=== PATIENT | female | born 1995 | race Caucasian/White ===

== ENCOUNTER 2019-10-07 21:44 | Emergency (ER) | payer SELFPAY ==
--- NOTE | 2019-10-07 22:37 | ER Document Report ---
ED Substance Abuse / Acc. OD - General Mode of Arrival: Ambulatory Information source: Patient - HPI Patient complains to provider of: Drug abuse, Drug withdrawal Onset: This morning Pain Level: Denies Associated Symptoms: Rapid pulse Similar symptoms previously: Yes Recently seen / treated by doctor: No <JOSELITO TRIVEDI - Last Filed: 10/08/19 00:30> <RANELLY Connor - Last Filed: 10/08/19 05:42> <ARDEN VELAZCO - Last Filed: 10/08/19 15:46> <JOSELITO ANSARI - Last Filed: 10/08/19 16:28> - General Chief Complaint: Medical Clearance Stated Complaint: MEDICAL CLEARANCE Time Seen by Provider: 10/07/19 22:26 Primary Care Provider: [facility] [Outside] - Follow up as needed [facility] [Outside] - Follow up as needed Notes: Patient presents requesting detox from heroin. Patient states she attempted to go to the [facility] facility but because they took a test and she was found to be they advised her to come here for detox. Patient states last use of heroin was at 9 AM today. Patient denies any other illicit substance abuse. (JOSELITO TRIVEDI) - Related Data Allergies/Adverse Reactions: No Known Allergies Allergy (Unverified 10/07/19 22:33) Past Medical History - General Information source: Patient - Social History Smoking Status: Current Every Day Smoker Frequency of alcohol use: None Drug Abuse: Heroin Lives with: Family Family History: Reviewed & Not Pertinent Patient has homicidal ideation: No - Medical History Medical History: Negative Surgical Hx: Negative <JOSELITO TRIVEDI - Last Filed: 10/08/19 00:30> Review of Systems - Review of Systems Constitutional: No symptoms reported. denies: Fever EENT: No symptoms reported Cardiovascular: Palpitations Respiratory: No symptoms reported Gastrointestinal: No symptoms reported Genitourinary: No symptoms reported Female Genitourinary: No symptoms reported Musculoskeletal: No symptoms reported Skin: No symptoms reported Hematologic/Lymphatic: No symptoms reported Neurological/Psychological: No symptoms reported <JOSELITO TRIVEDI - Last Filed: 10/08/19 00:30> Physical Exam <JOSELITO TRIVEDI - Last Filed: 10/08/19 00:30> - Vital signs Vitals: Temp Pulse Resp BP Pulse Ox 98.8 F 118 H 14 139/68 H 100 10/07/19 21:54 10/07/19 21:54 10/07/19 21:54 10/07/19 21:54 10/07/19 21:54 - Notes Notes: PHYSICAL EXAMINATION: GENERAL: Well-appearing and in no acute distress. HEAD: Atraumatic, normocephalic. EYES: extraocular movements intact, sclera anicteric, conjunctiva are normal. ENT: nares patent, oropharynx clear without exudates. Moist mucous membranes. NECK: Normal range of motion, supple without lymphadenopathy LUNGS: CTAB and equal. No wheezes rales or rhonchi. HEART: Tachycardia and rhythm without murmurs ABDOMEN: Soft, no tenderness. EXTREMITIES: Multiple track aggarwal to bilateral upper extremities, area of erythema to dorsal middle third of right forearm BACK: No midline tenderness, no step-off or deformity. NEUROLOGICAL: Cranial nerves grossly intact. Normal speech. Normal gait. PSYCH: Tearful, normal affect SKIN: Warm, Dry, erythema to dorsum of right forearm surrounding track aggarwal. Patient with multiple track aggarwal to bilateral upper extremities (JOSELITO TRIVEDI) Course - Laboratory Result Diagrams: 10/07/19 23:06 10/07/19 23:06 <JOSELITO TRIVEDI - Last Filed: 10/08/19 00:30> - Laboratory Result Diagrams: 10/07/19 23:06 10/07/19 23:06 <NELLY KNAPP - Last Filed: 10/08/19 05:42> - Laboratory Result Diagrams: 10/07/19 23:06 10/07/19 23:06 <ARDEN VELAZCO - Last Filed: 10/08/19 15:46> - Laboratory Result Diagrams: 10/07/19 23:06 10/07/19 23:06 <JOSELITO ANSARI - Last Filed: 10/08/19 16:28> - Re-evaluation Re-evalutation: 10/07/19 23:39 Patient medically clear for discharge or transfer pending behavioral health team consultation. 10/08/19 00:30 Patient's UDS negative for opiates although it is positive for cocaine and marijuana. Report and handoff given to Nelly Knapp NP (JOSELITO TRIVEDI) 10/08/19 05:42 Approached by nursing, patient slightly diaphoretic and shaking feels like she is withdrawing from heroin although she was negative for opiates on her drug screen yesterday positive for cocaine and marijuana. Discussed with Dr. mills attending, will give 1 mg Ativan (NELLY KNAPP) 10/08/19 16:24 This migraine physician prosthetics assistant I took over patient care from nighttime APC. He reports that patient was brought in for heroin detox and is waiting for evaluation possible placement. States that patient's drug screen came back with no opiates in it but did come back positive for cocaine. Patient has been resting comfortably all day. Patient was evaluated by psych late in the afternoon and patient is a voluntary admit looking for guidance on detox and has been given all of the information by social work manager. When she leaves out of the ER she will contact the local rehab and they will help her get established. Patient was found to be prior to being sent here by the detox facility and she had had no complaints throughout the entire day. Just prior to being discharged patient requested having an ultrasound to find out how far along she was. I informed patient that just because you are does not mean you need an ultrasound and especially 1 out of the emergency room. She has had no complaints of spotting no complaints of cramping or abdominal discomfort or pelvic pain. I have informed her that this is something she can follow-up with outpatient and that she can do so at the health department. Patient is free to go on her own recognizance. She was in touch with her mother and family in [place] and they are willing to come get her. (JOSELITO ANSARI) - Vital Signs Vital signs: Temp Pulse Resp BP Pulse Ox 98.1 F 118 H 15 105/57 L 99 10/08/19 11:26 10/07/19 21:54 10/08/19 10:01 10/08/19 10:00 10/08/19 11:26 - Laboratory Laboratory results interpreted by me: 10/07/19 10/07/19 10/07/19 22:36 23:06 23:06 WBC 13.1 H MCV 75 L MCH 25.2 L RDW 15.5 H Lymph % (Auto) 12.5 L Absolute Neuts (auto) 10.7 H Seg Neutrophils % 82.2 H Creatinine 0.50 L AST 43 H ALT 46 H Total Protein 8.4 H Serum HCG, Qual Urine Urobilinogen 2.0 H Salicylates < 1.0 L Acetaminophen < 10 L 10/07/19 23:06 WBC MCV MCH RDW Lymph % (Auto) Absolute Neuts (auto) Seg Neutrophils % Creatinine AST ALT Total Protein Serum HCG, Qual POSITIVE H Urine Urobilinogen Salicylates Acetaminophen Discharge <JOSELITO TRIVEDI - Last Filed: 10/08/19 00:30> <RANELLY Ryan - Last Filed: 10/08/19 05:42> <MORAARDEN - Last Filed: 10/08/19 15:46> <JOSELITO ANSARI - Last Filed: 10/08/19 16:28> - Discharge Clinical Impression: Polysubstance abuse, Opioid abuse, Cocaine abuse, Cannabis abuse, Desire for detoxification Qualifiers: Weeks of gestation: unspecified Qualified Code(s): Z34.90 - Encounter for supervision of normal , unspecified, unspecified trimester Condition: Stable Disposition: HOME, SELF-CARE Instructions: ([facility]) Additional Instructions: You have been evaluated by both medical and behavioral health teams for polysubstance use (opioid, cocaine, cannabis) and desire for detoxification. You have been deemed appropriate for discharge. While in the emergency department you received the following services/or had access to: Medical screening and assessment, nursing services, dietary services, pharmacological services, one-on-one counseling and/or psychotherapy, environmental services, and continuous observation by a patient corporate safety coordinator. COCAINE ABUSE: Cocaine causes many dangerous medical problems. Problems can occur even with "usual" amounts. Cocaine affects judgement, creating a sense of inv ulnerability. Cocaine users often make bad decisions that seem "great" at the time. Most cocaine users eventually will be hurt by bad job performance, damaged personal relations, crime, and unsafe sexual practices. Toxic effects of cocaine can include seizures, hallucinations, delusions, high blood pressure, heart damage, or sudden . There's always the risk of a "bad batch." But heart attacks, brain hemorrhages, or cardiac arrest can occur unpredictably even with "normal" use. Injection of cocaine is risky for abscesses, endocarditis (heart infection), pneumonia, and AIDS. Withdrawal from cocaine often causes anxiety and drug cravings. Some users become paranoid and psychotic. Many treatment programs are available, but you must make the decision to quit. Medication can be prescribed to control the symptoms of cocaine toxicity (beta blockers or benzodiazepines). Withdrawal symptoms may require tranquilizers. NARCOTIC / OPIOID ABUSE: Narcotics and opioids are pain-relieving drugs that are often abused. They are addicting. Narcotics cause euphoria, but it often takes increasing amounts to "feel good" and avoid withdrawal symptoms. Overdose of narcotics causes small pupils, coma, and decreased breathing. It's a common cause of . Purity of street narcotics is unpredictable. Injection of narcotics is risky for abscesses, endocarditis (heart infection), pneumonia, and AIDS. Withdrawal from narcotics causes goose bumps, watery mouth, sweating, nasal congestion, muscle aches, abdominal cramps, vomiting, and diarrhea. There's often restlessness and confusion. Treatment programs are available, but you must make the decision to quit. Medication (such as clonidine) can be prescribed to control the symptoms of withdrawal. Cannabis is also mind altering. The human brain develops well into our 20s and use of cannabis affects the development. Also it causes impairment in judgment, insight and impulse control. FOLLOW-UP CARE: [facility] is unable to assist you with your detoxification due to not having access to Methadone and/or Suboxone. A Voluntary referral was sent to [facility]. You are recommended to utilize mobile crisis as they can assist with voluntary detoxification and stay involved, as long as you do your part, until you get bed availability. You have been provided the substance abuse resource sheet which includes both mobile crisis numbers and the list of detoxification facilities. You have also been provided the economic resource sheet for local shelters and food [facility]son/soup kitchen. A referral was made to [facility] for the Peer Navigator Program (like a case management service that can assist with local resources.information/linkage). If you experience worsening or a significant change in your symptoms notify your physician immediately, utilize mobile crisis or return to the Emergency Department at any time for re-evaluation. Referrals: [facility] [Outside] - Follow up as needed [facility] [Outside] - Follow up as needed
[2019-10-07] MEDS ORDERED: DIPHENHYDRAMINE HCL 50 MG/ML VIAL IV ONE (22:42)
[2019-10-07] MEDS ORDERED: METOCLOPRAMIDE HCL INJ/PF 10 MG/2 ML SDV IV ONE (22:42)
[2019-10-07] MEDS ORDERED: NORMAL SALINE 1000 ML 1,000 ML IV ONE (22:42)
[2019-10-07 23:03] LABS: APPEARANCE,URINE SLIGHTLY-CLOUDY; BILIRUBIN,URINE NEGATIVE (NEGATIVE); COLOR,URINE YELLOW; GLUCOSE, URINE NEGATIVE (NEGATIVE); KETONES,URINE NEGATIVE (NEGATIVE); LEUKOCYTE ESTERASE,URINE NEGATIVE (NEGATIVE); NITRITE,URINE NEGATIVE (NEGATIVE); PROTEIN,URINE NEGATIVE (NEGATIVE); URINE SPECIFIC GRAVITY 1.024
[2019-10-07] MEDS: CEPHALEXIN 500 MG CAPSULE PO SCH (23:04)
[2019-10-07 23:14] LABS: ABSOLUTE BASOPHILS # (AUTO) 0.1 10^3/uL (0.0-0.2); ABSOLUTE LYMPHOCYTES (AUTO) 1.6 10^3/uL (0.5-4.7); ABSOLUTE MONOCYTES (AUTO) 0.6 10^3/uL (0.1-1.4); ABSOLUTE NEUT (AUTO) 10.7 10^3/uL (1.7-8.2); BASOPHILS % (AUTO) 0.4 % (0-2); EOSINOPHILS % (AUTO) 0.2 % (0-6); HEMATOCRIT 37.4 % (36.0-47.0); HEMOGLOBIN 12.5 g/dL (12.0-15.5); LYMPHOCYTES % (AUTO) 12.5 % (13-45); MEAN CORPUSCULAR HEMOGLOBIN 25.2 pg (27.0-33.4); MEAN CORPUSCULAR HGB CONC 33.4 g/dL (32.0-36.0); MEAN CORPUSCULAR VOLUME 75 fl (80-97); MONOCYTES % (AUTO) 4.7 % (3-13); PLATELET COUNT 389 10^3/uL (150-450); RED BLOOD COUNT 4.96 10^6/uL (3.72-5.28); RED CELL DISTRIBUTION WIDTH 15.5 % (11.5-14.0); SEGMENTED NEUTROPHILS % (AUTO) 82.2 % (42-78); TOTAL CELLS COUNTED % (AUTO) 100 %; WHITE BLOOD COUNT 13.1 10^3/uL (4.0-10.5)
[2019-10-07 23:15] LABS: URINE AMPHETAMINES SCREEN NEGATIVE; URINE BARBITURATES SCREEN NEGATIVE; URINE BENZODIAZEPINES SCREEN NEGATIVE; URINE METHADONE SCREEN NEGATIVE; URINE PHENCYCLIDINE SCREEN NEGATIVE
[2019-10-07 23:16] LABS: URINE COCAINE SCREEN UNCONFIRMED POSITIVE; URINE MARIJUANA (THC) SCREEN UNCONFIRMED POSITIVE
[2019-10-07 23:38] LABS: ACETAMINOPHEN < 10 ug/mL (10-30); ALBUMIN 4.2 g/dL (3.5-5.0); ALCOHOL < 10 mg/dL (NONE DETECTED); ALKALINE PHOSPHATASE 101 U/L (38-126); ANION GAP 10 (5-19); ASPARTATE AMINO TRANSFERASE 43 U/L (14-36); BILIRUBIN,TOTAL 0.4 mg/dL (0.2-1.3); BLOOD UREA NITROGEN 8 mg/dL (7-20); CALCIUM 9.4 mg/dL (8.4-10.2); CARBON DIOXIDE 24 mmol/L (22-30); CHLORIDE 103 mmol/L (98-107); GLUCOSE 102 mg/dL (75-110); POTASSIUM 4.1 mmol/L (3.6-5.0); SALICYLATE < 1.0 mg/dL (2.0-20.0); TOTAL PROTEIN 8.4 g/dL (6.3-8.2)
[2019-10-08] MEDS ORDERED: LORAZEPAM 1 MG TABLET PO ONE (05:42)
--- NOTE | 2019-10-08 08:33 | EKG REPORT ---
SEVERITY:- BORDERLINE ECG - SINUS RHYTHM INFERIOR Q WAVES, PROBABLY NORMAL VARIATION : Confirmed by: Armin Riggins 08-Oct-2019 08:33:10
[2019-10-08 11:11] VITALS: BP 105/57
[2019-10-08] MEDS: CEPHALEXIN 500 MG CAPSULE PO SCH ×2 (11:27→14:48)
--- NOTE | 2019-10-09 10:06 | PSYCHOLOGICAL NOTE ---
Psych Note - Psych Note Date seen by psych provider: 10/08/19 Time seen by psych provider: 11:31 - Evaluation with patient from [id number]. Mother collateral from [phone]. Coordaintion with [facility] from [phone]. Coordination with [facility] for [facility] authorization at 1401. Voluntary [facility] referral faxed at [phone]. Mother and friend aware of plan of care at 1600. Psych Note: Patient is a 24 year old female who presented to the Emergency Department last evening via privately owned vehicle after trying to get into [facility] [employer] for Opioid detoxification but in the process they discovered (patient was not aware) she was . Patient reported she was interested in detoxification for heroin, [facility] could not help because they do not offer Methadone and Suboxone which they said she would require such a taper due to (patient reported heroin use yesterday morning, Urine Drug Screen positive for Cocaine and Cannabis, she did not deny use of either but said it was not regular. Patient reported this is her first . She denied using Methadone and admitted being prescribed it in the past. She further reported on her mother is coming from [place] to get her and then she will be going to a rehabilitation treatment program in [place]. Patient stated she came to [place] for her boyfriend who is no longer in the picture, she has nowhere to go, and she has no support s locally. Patient then elaborated that her boyfriend yesterday. As she said this she turned away and closed her eyes. She continued to engage in the evaluation after this. Patient denied previous detoxification/rehabilitation and previous mental health hospitalizations. At the end of the evaluation she asked "am I going to be discharged, I'm going to get really sick." She was made aware the emergency department is not a detoxification facility and appropriate linkage could take place with mobile crisis assisting. When made aware of discharge later in the day she called someone named Soham then mother, had both in speaker phone. This clinician informed all of them of the plan which meant patient calling mobile crisis immediately at discharge and they could meet her in the lobby/outside/anywhere to begin assisting with voluntary detoxification placement. Patient again mentioned "I'm sick I'm not doing okay." This clinician challenged her explaining her vitals look good and no medical concerns. She s tated "they don't know mom." This clinician did acknowledge she would start to get sick as the withdrawal continued. She denied suicidal and homicidal ideation which were never presenting concerns. Patient was alert and oriented to self, person, place, time and situation. Mood was euthymic with congruent affect. She denied current suicidal and homicidal ideation. Patient did not appear to be responding to internal stimuli as evidenced by fair eye contact and answering questions appropriately when addressed. Thought processes were linear and organized. Conversational speech was within normal limits for rate, tone and prosody. Intellectual abilities are estimated to be average. Insight, judgment and impulse control were fair as evidenced by wanting help. Obtained collateral from patient's mother Delphine ([phone]). Patient provided contact information and gave verbal consent to talk with her and include her in plan of care. Mother was aware of patient being in the emergency department and finding out she was last evening when she tried to get into [facility] for voluntary detoxification. Mother stated she called the hospital to ask about if they provide detoxification or can link and they said yes so she told patient to come. Mother stated "she really needs to get to detoxification then yes I would pick her up, bring her to [place] and help her get into a rehabilitation program." She commented on how the flow of substance abuse treatment (getting detoxification and going right into another program) is not smooth in [place] often times bed availability being an issue and individuals having to wait. She was made aware it was similar in [place]. She stated "I talked to her last night, it was the first time she was making sense, she was worried abo ut drugs hurting the baby and mentioned she needed to grow up now." From [phone] spoke to Paloma at [facility] about patient. She stated they are unable to meet patient's needs due to her being , the need for Suboxone or Methadone taper for Opioid withdrawal especially with finding out , and they do not have those medications at their facility. Paloma stated [facility] has a unit. At 1346 tried calling [facility]. Completed Regional Referral form. At 1401 called [facility], spoke to Junaid, obtained authorization ([id number]). Obtained referral packet and at 1409 faxed to [facility] for voluntary detoxification. At 1552 tried calling [facility] for Peer Navigator referral. No answer. Left voice mail with call back information. Clinical Presentation: Polysubstance Use Opioid Use (Heroin per patient) Cocaine Use Cannabis Use Desire for detoxification Just found out she is Impression/Plan: Patient is cleared from acute psychiatric services. She denied suicidal and homicidal ideation. These were never presenting concerns. She expressed desire for opioid detoxification and concerns since she just found out she was . Coordinated with [facility] who said they cannot meet patient's needs. Made a voluntary referral to [facility]. Provided patient with the outpatient substance abuse resource sheet which highlighted and documented calling one of the mobile crisis teams at discharge to assist with voluntary detoxification placement, it noted [facility] said they could not meet patient's needs and why and it noted referral sent to [facility] with authorization number. Patient also provided with her lab work/EKG so [facility] would have it for other detoxification referrals. Provided patient with the local economic resource sheet as well that lists homeless shelters and food [facility]ardson/soup kitchen. Mother and friend Soham aware of plan of care. Patient instructed to call one of the mobile crisis numbers once discharged so they could meet her at the hospital. Attending ED Nurse stated she had patient call mobile crisis from patient's own cell phone as she was being discharged. Consulted with Dr. Hill regarding the management and care of patient. ED Physician in agreement with recommendations.
== END 2019-10-08 16:52 | disposition home or self-care (01) ==
LOC: ER 21:44
DX: O99.320 Drug use complicating pregnancy, unspecified trimester (principal); R61 Generalized hyperhidrosis; F19.10 Other psychoactive substance abuse, uncomplicated; F14.10 Cocaine abuse, uncomplicated; F12.10 Cannabis abuse, uncomplicated; F17.200 Nicotine dependence, unspecified, uncomplicated; Z3A.00 Weeks of gestation of pregnancy not specified
CPT/HCPCS: 93005; 99284; 96361; 96374; 96375; 36415; 80307 ×4; 84703; 85025; 80053; 81001; 93010; J1200; J2765; J7030

== ENCOUNTER 2019-10-09 10:13 | Emergency (ER) | payer SELFPAY ==
[2019-10-09 10:42] VITALS: BP 109/47
--- NOTE | 2019-10-09 11:48 | ER Document Report ---
ED Psych Disorder / Suicide <MIROSLAVA VELAZCO - Last Filed: 10/09/19 14:44> <ABI PARIS - Last Filed: 10/13/19 00:23> - General Chief Complaint: Suicidal Ideation Stated Complaint: SUICIDAL IDEATION Time Seen by Provider: 10/09/19 10:31 Primary Care Provider: [facility] [Outside] - Follow up as needed Notes: 22-year-old female presenting today with suicidal ideation starting this morning. Is a known IV drug user (heroine). Was discharged from the ER yesterday. Had a referral to [facility]. States she has had suicidal ideations starting this morning. She denies any active plan. States she is hearing voices that are telling her to kill herself. She is . Is uncertain as to when her LMP is. No established OB care yet. Denies any headaches, fevers, chills, abdominal pain or additional symptoms. (ABI PARIS) - Related Data Allergies/Adverse Reactions: No Known Allergies Allergy (Verified 10/09/19 11:51) Past Medical History - Social History Smoking Status: Current Every Day Smoker Drug Abuse: Heroin Family History: Reviewed & Not Pertinent <ABI PARIS - Last Filed: 10/13/19 00:23> Review of Systems - Review of Systems Constitutional: No symptoms reported EENT: No symptoms reported Cardiovascular: No symptoms reported Respiratory: No symptoms reported Gastrointestinal: No symptoms reported Genitourinary: No symptoms reported Female Genitourinary: Musculoskeletal: No symptoms reported Skin: No symptoms reported Hematologic/Lymphatic: No symptoms reported Neurological/Psychological: No symptoms reported <ABI PARIS - Last Filed: 10/13/19 00:23> Physical Exam - Vital signs Interpretation: Normal <ABI PARIS - Last Filed: 10/13/19 00:23> - Vital signs Vitals: Temp 97.9 F 10/09/19 10:33 - Notes Notes: Adult General: GENERAL: Alert, interacts well. No acute distress HEAD: Normocephalic, atraumatic EYES: Pupils equal, round and reactive to light. Extraocular movements intact. ENT: Airway patent. Nares patent. NECK: Full range of motion. Supple. Trachea midline. No lymphadenopathy. LUNGS: Clear to auscultation bilaterally, no wheezes, rales, or rhonchi. No respiratory distress. Nontender chest wall. HEART: Regular rate and rhythm. No murmurs, rubs or gallops. ABDOMEN: Soft, nontender, . GENITOURINARY: Deferred EXTREMITIES: Moves all 4 extremities spontaneously. BACK: Moves all extremities with full range of motion. NEUROLOGICAL: Alert and oriented x3. Normal speech. Strength 5/ 5 in all extremities. PSYCH: Normal affect, normal mood. SKIN: Warm, dry, normal turgor. No rashes or lesions noted. (ABI PARIS) Course - Laboratory Result Diagrams: 10/09/19 12:40 10/09/19 12:40 <MIROSLAVA VELAZCO - Last Filed: 10/09/19 14:44> - Laboratory Result Diagrams: 10/09/19 12:40 10/09/19 12:40 <ABI PARIS - Last Filed: 10/13/19 00:23> - Re-evaluation Re-evalutation: 10/09/19 15:58 Her EKG shows heart rate of 78, GA interval of 120, QT of 376, normal axis. No ST segment elevations or depressions. Her urinalysis does show positive leukocyte esterase. Her UDS shows she is positive for cocaine and marijuana. Additional labs are unremarkable. She denies any pain at this time. I will go ahead and treat her for asymptomatic UTI at this time as she is . Patient is medically cleared. 10/09/19 16:06 I was notified by the nurse that the patient has left the emergency department with her transport to inpatient treatment prior to her getting a script for a UTI and prior to this provider reevaluating the patient. I talked with Miroslava with mental health. Was notified patient was picked up by mobile crisis unit to be taken to [facility] for inpatient treatment. They have been attempted to be reached three times unsuccessfully by Miroslava. I have also called and left a message but have not received a call back. They were sent the labs. Multiple attempts were made to reach the patient while at inpatient treatment. (ABI PARIS) - Vital Signs Vital signs: Temp Pulse Resp BP Pulse Ox 97.9 F 80 18 109/47 L 97 10/09/19 10:39 10/09/19 10:42 10/09/19 10:42 10/09/19 10:42 10/09/19 10:42 - Laboratory Laboratory results interpreted by me: 10/09/19 10/09/19 10/09/19 12:40 12:40 13:55 WBC 12.1 H MCV 74 L MCH 25.1 L RDW 15.2 H Absolute Neuts (auto) 9.3 H Chloride 109 H Carbon Dioxide 19 L Creatinine 0.49 L AST 42 H ALT 50 H Total Protein 8.4 H Beta HCG, Quant 00822.00 H Urine Protein 30 H Urine Ketones TRACE H Urine Urobilinogen 4.0 H Ur Leukocyte Esterase SMALL H Salicylates < 1.0 L Acetaminophen < 10 L Discharge <MIROSLAVA VELAZCO - Last Filed: 10/09/19 14:44> <ABI PARIS - Last Filed: 10/13/19 00:23> - Discharge Clinical Impression: Polysubstance abuse, Opioid abuse, Cocaine abuse, Cannabis abuse, Desire for detoxification, , Suicidal ideation Condition: Stable Disposition: HOME, SELF-CARE Additional Instructions: You have been evaluated by both medical and behavioral health teams for suicidal ideation, polysubstance use (you reported Intravenous heroin use for past 3 years, Urine drug screen positive for Cocaine and Cannabis), desire for detoxification and finding out yesterday you are . You have been deemed appropriate for discharge. While in the emergency department you received the following services/or had access to: Medical screening and assessment, nursing services, dietary services, pharmacological services, one-on-one counseling and/or psychotherapy, environmental services, and continuous observation by a patient safety net maker. You are recommended for voluntary detoxification at [facility] with transportation assistance from [facility]. DEPRESSION: Your evaluation reveals that you have mental depression. While symptoms may be vague, they often include disturbance of sleep, fatigue, loss of appetite, and general loss of interest in life. While depression may be a side effect of drugs, or a reaction to a major change in your life, many cases have no known cause. If depression is acute, and related to a major loss in your life, you can expect it to clear completely with time. If you have been depressed a long time, are prone to repeated bouts of depression or low mood, or have been thinking of suicide, get help. Depression can be treated with anti-depressant medication and counselling. Long-term depression will often take a few weeks to clear, even with appropriate medication. Follow-up care is important. SUICIDAL IDEATION: Suicidal ideation is a common medical term for thoughts about suicide, which may be as detailed as a formulated plan, without the suicidal act itself. Although most people who undergo suicidal ideation do not commit suicide, some go on to make suicide attempts. The range of suicidal ideation varies greatly from fleeting to detailed planning, role playing, and unsuccessful attempts. While thoughts about suicide are common, most people do not carry out serious actions to commit suicide. Based upon your evaluation and discussion with you, we do not believe you are currently at risk to act upon your thoughts of suicide. You have agreed to return to the Emergency Department, at any time, if you feel inclined to act upon your suicidal thoughts. COCAINE ABUSE: Cocaine causes many dangerous medical problems. Problems can occur even with "usual" amounts. Cocaine affects judgement, creating a sense of invulnerability. Cocaine users often make bad decisions that seem "great" at the time. Most cocaine users eventually will be hurt by bad job performance, d amaged personal relations, crime, and unsafe sexual practices. Toxic effects of cocaine can include seizures, hallucinations, delusions, high blood pressure, heart damage, or sudden . There's always the risk of a "bad batch." But heart attacks, brain hemorrhages, or cardiac arrest can oc cur unpredictably even with "normal" use. Injection of cocaine is risky for abscesses, endocarditis (heart infection), pneumonia, and AIDS. Withdrawal from cocaine often causes anxiety and drug cravings. Some users become paranoid and psychotic. Many treatment programs are available, but you must make the decision to quit. Medication can be prescribed to control the symptoms of cocaine toxicity (beta blockers or benzodiazepines). Withdrawal symptoms may require tranquilizers. NARCOTIC / OPIOD ABUSE: Narcotics and opiods are pain-relieving drugs that are often abused. They are addicting. Narcotics cause euphoria, but it often takes increasing amounts to "feel good" and avoid withdrawal symptoms. Overdose of narcotics causes small pupils, coma, and decreased breathing. It's a common cause of . Purity of street narcotics is unpredictable. Injection of narcotics is risky for abscesses, endocarditis (heart infection), pneumonia, and AIDS. Withdrawal from narcotics causes goose bumps, watery mouth, sweating, nasal congestion, muscle aches, abdominal cramps, vomiting, and diarrhea. There's often restlessness and confusion. Treatment programs are available, but you must make the decision to quit. Medication (such as clonidine) can be prescribed to control the symptoms of withdrawal. Cannabis Abuse: It is also mind altering and impairs insight/judgment/impulse control. Human brains develop well into our 20s and use of cannabis can affect that development. It can also cause and/or exacerbate mental health symptoms. FOLLOW-UP CARE: [facility] is accepting you for voluntary detoxification/treatment and [facility] is assisting with transportation. [facility] has been coordinating care with both professional supports. This is an appropriate level of care. 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 If you experience worsening or a significant change in your symptoms notify your physician immediately, utilize mobile crisis or return to the Emergency Department at any time for re- evaluation. Prescriptions: Cephalexin Monohydrate [Keflex 500 mg Capsule] 500 mg PO Q6H 5 Days #20 capsule Referrals: [facility] [Outside] - Follow up as needed
[2019-10-09] MEDS ORDERED: ONDANSETRON 4 MG TAB.RAPDIS PO ONE (12:35)
[2019-10-09 12:55] LABS: ABSOLUTE BASOPHILS # (AUTO) 0.1 10^3/uL (0.0-0.2); ABSOLUTE LYMPHOCYTES (AUTO) 2.2 10^3/uL (0.5-4.7); ABSOLUTE MONOCYTES (AUTO) 0.5 10^3/uL (0.1-1.4); ABSOLUTE NEUT (AUTO) 9.3 10^3/uL (1.7-8.2); BASOPHILS % (AUTO) 0.4 % (0-2); EOSINOPHILS % (AUTO) 0.1 % (0-6); HEMATOCRIT 37.1 % (36.0-47.0); HEMOGLOBIN 12.5 g/dL (12.0-15.5); LYMPHOCYTES % (AUTO) 17.9 % (13-45); MEAN CORPUSCULAR HEMOGLOBIN 25.1 pg (27.0-33.4); MEAN CORPUSCULAR HGB CONC 33.8 g/dL (32.0-36.0); MEAN CORPUSCULAR VOLUME 74 fl (80-97); MONOCYTES % (AUTO) 4.5 % (3-13); PLATELET COUNT 365 10^3/uL (150-450); RED BLOOD COUNT 4.99 10^6/uL (3.72-5.28); RED CELL DISTRIBUTION WIDTH 15.2 % (11.5-14.0); SEGMENTED NEUTROPHILS % (AUTO) 77.1 % (42-78); TOTAL CELLS COUNTED % (AUTO) 100 %; WHITE BLOOD COUNT 12.1 10^3/uL (4.0-10.5)
[2019-10-09 13:17] LABS: ALKALINE PHOSPHATASE 109 U/L (38-126); ANION GAP 12 (5-19); ASPARTATE AMINO TRANSFERASE 42 U/L (14-36); BILIRUBIN,TOTAL 0.6 mg/dL (0.2-1.3); BLOOD UREA NITROGEN 7 mg/dL (7-20); CALCIUM 9.3 mg/dL (8.4-10.2); CARBON DIOXIDE 19 mmol/L (22-30); CHLORIDE 109 mmol/L (98-107); GLUCOSE 105 mg/dL (75-110); POTASSIUM 3.9 mmol/L (3.6-5.0); TOTAL PROTEIN 8.4 g/dL (6.3-8.2)
[2019-10-09 13:34] LABS: ACETAMINOPHEN < 10 ug/mL (10-30); ALCOHOL < 10 mg/dL (NONE DETECTED); SALICYLATE < 1.0 mg/dL (2.0-20.0)
[2019-10-09 14:12] LABS: APPEARANCE,URINE SLIGHTLY-CLOUDY; BILIRUBIN,URINE NEGATIVE (NEGATIVE); COLOR,URINE AMBER; GLUCOSE, URINE NEGATIVE (NEGATIVE); KETONES,URINE TRACE mg/dL (NEGATIVE); LEUKOCYTE ESTERASE,URINE SMALL (NEGATIVE); NITRITE,URINE NEGATIVE (NEGATIVE); PROTEIN,URINE 30 mg/dL (NEGATIVE); URINE SPECIFIC GRAVITY 1.026
--- NOTE | 2019-10-09 14:14 | PSYCHOLOGICAL NOTE ---
Psych Note - Psych Note Date seen by psych provider: 10/09/19 Time seen by psych provider: 13:35 - Evaluation with patient from [phone]. Missed call from [facility] this morning so tried calling back at 1137 and 1340 regarding voluntary referral from yesterday/admissions called at 1432. C benjie from [facility] from [id number], [phone] and [phone]. Psych Note: Patient is a 24 year old female who presented to the Emergency Department late morning via EMS for suicidal ideation with thoughts of hanging herself. She denied taking action or any history of suicide attempts to medical staff. She informed medical staff she has been an IV heroin user the past 3 years and was in the Emergency Department yesterday (10/08/2019) for detoxification (note tried to get patient to [facility] but denied due to the facility not utilizing Methadone or Suboxone and that being protocol for someone who is detoxifying from opioids while , also faxed a voluntary referral to [facility], then patient was instructed to utilize [facility] for ongoing assistance with voluntary detoxification placement, patient also provided economic resource sheet). Patient confirmed she contacted [facility] yesterday as was instructed. She stated "they cannot get me detoxification because I am ." She identified her mother paid for her to stay in a hotel last night. When asked about in the moment if she had any thoughts of wanting to hurt/harm/kill self she commented "some, it's the same." Patient was alert and oriented to self, person, place, time and situation. Mood was euthymic with congruent affect. She continued to endorse suicidal ideation saying it was the same. Patient did not appear to be responding to internal stimuli as evidenced by fair eye contact and answering questions appropriately when addressed. Thought processes were linear and organized. Conversational speech was within normal limits for rate, tone and prosody. Intellectual abilities are estimated to be average. Insight, judgment and impulse control were fair as evidenced by reaching out to mobile crisis as recommended yesterday (10/08/2019). At 0808 this clinician saw missed calls from [facility]. Returned call at 1137, spoke to Bonnie who transferred call to referrals/triage, no answer, left message with return call back information. Tried calling again at 1340 and again no answer. At 1432 Kierra from [facility] called. She inquired about current withdrawal symptoms: was informed patient has been sleeping and observed her forehead being sweaty. She inquired about and how far along. Was made aware today has HCG level. It was verbally provided. Patient gave verbal consent to fax lab work so did. Patient being accepted to [facility]. From [phone] spoke to José Miguel with [facility]. He identified ticket worker Camille was involved with patient last evening. He identified the [facility] was fill, [facility] denied due to , was unsure about the [facility] locations, and that the ticket worker tried to get [facility] to [facility] but that was chaotic and did not happen. He said he would have Camille call to coordinate care and for additional collateral. From [phone] Camille with [facility] called ([phone]). She stated patient did not express suicidal ideation yesterday. She further stated [facility] denied due to , [facility] said they do not accept individuals, she did a [facility] ([facility]) referral, and she would call [facility] because she has not heard back. She was made aware this clinician had reached out to [facility] yesterday and made a [facility] referral as well. shed workers supervisor stated she tried to get patient to [facility] but they are closed, would try the outreach nursing home, and would contact [facility] in [place]. She stated she would call back. At 1436 Camille called back she stated she could provide transportation for patient by 1536. Clinical Presentation: Homelessness Desire for Opioid (Heroin) detoxification Suicidal ideation Impression/Plan: Patient is cleared from acute psychiatric services. [facility] has coordinated with [facility] Camille and [facility] admission worker Kierra for voluntary detoxification. [facility] to provide transportation. Consulted with Dr. Hill regarding the management and care of patient. ED Physician in agreement with recommendations.
[2019-10-09 14:26] LABS: URINE AMPHETAMINES SCREEN NEGATIVE; URINE BARBITURATES SCREEN NEGATIVE; URINE BENZODIAZEPINES SCREEN NEGATIVE; URINE METHADONE SCREEN NEGATIVE; URINE PHENCYCLIDINE SCREEN NEGATIVE
[2019-10-09 14:28] LABS: URINE COCAINE SCREEN UNCONFIRMED POSITIVE; URINE MARIJUANA (THC) SCREEN UNCONFIRMED POSITIVE
--- NOTE | 2019-10-09 18:36 | EKG REPORT ---
SEVERITY:- NORMAL ECG - SINUS RHYTHM : Confirmed by: Armin Riggins 09-Oct-2019 18:36:15
== END 2019-10-09 16:17 | disposition home or self-care (01) ==
LOC: ER 10:13
DX: O99.320 Drug use complicating pregnancy, unspecified trimester (principal); F19.10 Other psychoactive substance abuse, uncomplicated; F11.10 Opioid abuse, uncomplicated; F14.10 Cocaine abuse, uncomplicated; F12.10 Cannabis abuse, uncomplicated; O99.330 Smoking (tobacco) complicating pregnancy, unspecified trimester; Z3A.00 Weeks of gestation of pregnancy not specified
CPT/HCPCS: 93005; 99285; 36415; 80307 ×4; 84702; 85025; 80053; 81001; 93010; S0119